=== PATIENT | male | born 1950 | race Hispanic/Latino ===

== ENCOUNTER 2023-06-20 03:03 | Observation (INO) | payer MEDICARE ==
[~2023-06-20] VITALS: Ht 167.6 cm; Wt 49.6 kg
[2023-06-20] VITALS (7 sets, daily range): BP systolic 102–115; BP diastolic 68–76; PULSE 75–94; RESP 14–20; O2SAT 90–95
[2023-06-20] MEDS ORDERED: LACTATED RINGERS 1000ML 1,000 ML IV ONE (08:30)
[2023-06-20 08:55] LABS: HEMATOCRIT 44.8 % (42-54); MEAN CORPUSCULAR HEMOGLOBIN 30.3 pg (27.0-33.0); MEAN CORPUSCULAR HGB CONC 33.3 g/dL (32.0-36.0); MEAN CORPUSCULAR VOLUME 91.2 fL (79-99); RED BLOOD CELL COUNT(AUTO) 4.91 MIL/uL (4.50-6.20); RED CELL DISTRIBUTION WIDTH 13.6 % (11.0-15.5)
[2023-06-20] MEDS ORDERED: M.V.I. IV [ADULT] 10 ML, FOLIC ACID 1 MG, THIAMINE HCL 100 MG in 0.9%NACL 1000ML 1,000 ML IV SCH (09:00)
[2023-06-20 09:13] LABS: ALBUMIN 1.9 g/dL (3.5-5.0); CREATININE 1.7 mg/dL (0.5-1.5); POTASSIUM 3.4 mmol/L (3.5-5.1)
[2023-06-20] MEDS ORDERED: LORAZEPAM 2 MG/ML 1 ML VIAL IVP PRN (13:00)
[2023-06-20] MEDS ORDERED: CEFTRIAXONE 1G VIAL IVPB SCH (13:00)
[2023-06-20] MEDS ORDERED: MORPHINE 2 MG SYG IVP PRN (13:00)
[2023-06-20] MEDS ORDERED: PANTOPRAZOLE 40 MG/VIAL IVP SCH (13:00)
[2023-06-20] MEDS ORDERED: ACETAMINOPHEN 325 MG/10.15ML UDCUP PO PRN (13:00)
[2023-06-20] MEDS: DEXTROSE 5 %-0.45 % NACL 1,000 ML IV SCH (13:19)
[2023-06-20 13:36] LABS: SARS-CoV-2, RNA, NAAT NEGATIVE SARS CoV-2 (NEGATIVE)
[2023-06-20] MEDS ORDERED: ONDANSETRON 4MG INJ IVP PRN (14:00)
[2023-06-20] MEDS: BUDESONIDE 0.5 MG/2 ML INH IH SCH (18:45)
[2023-06-20] MEDS: IPRATROPIUM/ALBUTEROL SULFATE 3 ML SOLUTION IH PRN (19:04)
[2023-06-20] MEDS: CEFTRIAXONE 1G VIAL IVPB SCH (20:46)
[2023-06-21] VITALS (9 sets, daily range): BP systolic 112–127; BP diastolic 73–80; PULSE 74–89; RESP 14–32; O2SAT 95–97
[2023-06-21] MEDS: IPRATROPIUM/ALBUTEROL SULFATE 3 ML SOLUTION IH PRN ×3 (00:15→11:31)
[2023-06-21] MEDS: DEXTROSE 5 %-0.45 % NACL 1,000 ML IV SCH (06:12)
[2023-06-21] MEDS: BUDESONIDE 0.5 MG/2 ML INH IH SCH (07:09)
[2023-06-21] MEDS: CEFTRIAXONE 1G VIAL IVPB SCH (10:29)
[2023-06-21] MEDS ORDERED: HONEY 1 APPL/ML TUBE TP SCH (15:30)
== END 2023-06-21 16:45 | disposition hospice, inpatient (51) ==
LOC: EDH 03:03 → EDHIP 03:04 → 4DH 16:10
PROVIDERS: ADMIT Internal Medicine; ATTEND Internal Medicine
DX: G20.A1 Parkinson's disease without dyskinesia, without mention of fluctuations (principal); Z20.822 Contact with and (suspected) exposure to COVID-19; G92.8 Other toxic encephalopathy; J96.01 Acute respiratory failure with hypoxia; E86.0 Dehydration; I10 Essential (primary) hypertension; L89.150 Pressure ulcer of sacral region, unstageable; E86.1 Hypovolemia; E87.0 Hyperosmolality and hypernatremia; E43 Unspecified severe protein-calorie malnutrition; N17.9 Acute kidney failure, unspecified; N39.0 Urinary tract infection, site not specified; T74.01XA Adult neglect or abandonment, confirmed, initial encounter; Z51.5 Encounter for palliative care; Z63.9 Problem related to primary support group, unspecified; Z66 Do not resuscitate; Z74.01 Bed confinement status; Z87.01 Personal history of pneumonia (recurrent); Z87.440 Personal history of urinary (tract) infections; Z79.899 Other long term (current) drug therapy
CPT/HCPCS: 94640 ×6; 94664; 96365; 96368; 96366 ×2; 96375; 99285; 83735; 80053; 85027; 87040 ×2; 36415; 87635; 96361; G0378 ×26; C9803; J7120; J7030; J0696 ×3; J3411; J3490; C9113